=== PATIENT | male | born 1940 | race Caucasian/White ===

== ENCOUNTER 2018-06-09 03:35 | Outpatient (RCR) | payer OTHER, MEDICARE, SELFPAY ==
[2018-06-16 10:06] VITALS: BP 132/75; PULSE 70; RESP 18; TEMP 36.4
[2018-06-16] MEDS: Normal Saline Flush 10 ML SYR IVP (10:22)
[2018-06-16] MEDS: IMMUNE GLOBULIN 40 GM/400 ML BTL IVPB (10:22)
[2018-06-16 10:35] VITALS: BP 131/66; PULSE 67; RESP 18; TEMP 36.3
[2018-06-16 10:50] VITALS: BP 122/65; PULSE 67; RESP 18; TEMP 36.3
[2018-06-16 11:28] VITALS: BP 122/63; PULSE 66; RESP 18; TEMP 36.3
[2018-06-16 12:00] VITALS: BP 140/71; PULSE 74; RESP 18; TEMP 36.3
[2018-06-16 12:30] VITALS: BP 131/67; PULSE 69; RESP 18; TEMP 36.3
[2018-06-17 08:35] VITALS: BP 131/67; PULSE 69; RESP 18; TEMP 36.3
[2018-06-17] MEDS: Normal Saline Flush 10 ML SYR IVP (08:36)
[2018-06-17] MEDS: IMMUNE GLOBULIN 40 GM/400 ML BTL IVPB (08:48)
[2018-06-17 08:49] VITALS: BP 129/68; PULSE 63; RESP 18; TEMP 36.3
[2018-06-17 09:15] VITALS: BP 132/73; PULSE 67; RESP 18; TEMP 36.2
[2018-06-17 09:30] VITALS: BP 126/65; PULSE 67; RESP 18; TEMP 36.1
[2018-06-17 09:45] VITALS: BP 128/64; PULSE 69; RESP 18; TEMP 36.1
[2018-06-17 10:15] VITALS: BP 134/71; PULSE 67; RESP 18; TEMP 36.2
[2018-06-18 08:49] VITALS: BP 130/68; PULSE 67; RESP 18; TEMP 36.2
[2018-06-18] MEDS: IMMUNE GLOBULIN 40 GM/400 ML BTL IVPB (09:06)
[2018-06-18] MEDS: Normal Saline Flush 10 ML SYR IVP (09:06)
[2018-06-18 09:15] VITALS: BP 142/79; PULSE 67; RESP 17; TEMP 36.3
[2018-06-18 09:30] VITALS: BP 133/63; PULSE 67; RESP 18; TEMP 36.2
[2018-06-18 09:45] VITALS: BP 125/61; PULSE 67; RESP 17; TEMP 36.1
[2018-06-18 10:15] VITALS: BP 129/70; PULSE 65; RESP 18; TEMP 36.7
[2018-06-19 09:02] VITALS: BP 138/76; PULSE 61; RESP 17; TEMP 36.3
[2018-06-19] MEDS: IMMUNE GLOBULIN 40 GM/400 ML BTL IVPB (09:10)
[2018-06-19] MEDS: Normal Saline Flush 10 ML SYR IVP (09:10)
[2018-06-19 09:15] VITALS: BP 138/80; PULSE 67; RESP 18; TEMP 36.4
[2018-06-19 09:30] VITALS: BP 139/80; PULSE 63; RESP 18; TEMP 36.4
[2018-06-19 09:45] VITALS: BP 135/80; PULSE 65; RESP 18; TEMP 36.5
[2018-06-19 10:15] VITALS: BP 136/72; PULSE 61; RESP 18; TEMP 36.5
[2018-06-19 10:45] VITALS: BP 142/75; PULSE 58; RESP 18; TEMP 36.3
[2018-06-20 09:25] VITALS: BP 154/72; PULSE 65; RESP 18; TEMP 36.1
[2018-06-20] MEDS: IMMUNE GLOBULIN 40 GM/400 ML BTL IVPB (09:29)
[2018-06-20] MEDS: Normal Saline Flush 10 ML SYR IVP (09:29)
[2018-06-20 09:45] VITALS: BP 148/82; PULSE 65; RESP 18; TEMP 36.5
[2018-06-20 10:01] VITALS: BP 143/81; PULSE 59; RESP 18; TEMP 36.2
[2018-06-20 10:30] VITALS: BP 134/70; PULSE 61; RESP 18; TEMP 36.1
[2018-06-20 11:07] VITALS: BP 142/74; PULSE 58; RESP 18; TEMP 36.2
[2018-06-20 11:33] VITALS: BP 145/77; PULSE 46; TEMP 36.2
== END 2018-07-04 ==
LOC: INF 06-16 01:43
PROVIDERS: PCP Family Medicine; Visit Provider Family Medicine
DX: G61.81 Chronic inflammatory demyelinating polyneuritis (principal)
CPT/HCPCS: 96365 ×5; 96366 ×5; J1459 ×5

== ENCOUNTER 2018-07-14 00:47 | Outpatient (RCR) | payer MEDICARE, OTHER, SELFPAY | END 2018-08-03 23:59 | disposition home or self-care (01) | LOC: INF 00:47 | PROVIDERS: PCP Family Medicine; Visit Provider Family Medicine | DX: R69 Illness, unspecified (principal) ==

== ENCOUNTER 2018-10-03 00:43 | Outpatient (RCR) | payer OTHER, MEDICARE, SELFPAY ==
[2018-09-29 11:03] VITALS: BP 146/77; PULSE 76; RESP 18; TEMP 36.6; O2SAT 97
[2018-09-29] MEDS: Normal Saline Flush 10 ML SYR IVP (11:18)
[2018-09-29] MEDS: IMMUNE GLOBULIN 40 GM/400 ML BTL IVPB (11:18)
[2018-09-29 11:24] VITALS: BP 132/66; PULSE 78; RESP 18; TEMP 36.5; O2SAT 97
[2018-09-29 11:42] VITALS: BP 136/72; PULSE 74; RESP 18; TEMP 36.5; O2SAT 98
[2018-09-29 12:16] VITALS: BP 152/71; PULSE 75; RESP 18; TEMP 36.6; O2SAT 98
[2018-09-30] MEDS: IMMUNE GLOBULIN 40 GM/400 ML BTL IVPB (11:09)
[2018-09-30 11:15] VITALS: BP 145/75; PULSE 69; RESP 18; TEMP 36.5; O2SAT 98
[2018-09-30 11:30] VITALS: BP 152/77; PULSE 65; RESP 18; TEMP 36.6; O2SAT 98
[2018-09-30 12:00] VITALS: BP 160/82; PULSE 65; RESP 18; TEMP 36.5; O2SAT 98
[2018-09-30] MEDS: Normal Saline Flush 10 ML SYR IVP (14:33)
[2018-10-01 09:48] VITALS: BP 134/74; PULSE 71; RESP 18; TEMP 36.5; O2SAT 98
[2018-10-01] MEDS: IMMUNE GLOBULIN 40 GM/400 ML BTL IVPB (09:52)
[2018-10-01 10:11] VITALS: BP 154/77; PULSE 77; RESP 18; TEMP 36.4; O2SAT 98
[2018-10-01] MEDS: Normal Saline Flush 10 ML SYR IVP (10:18)
[2018-10-01 10:45] VITALS: BP 140/76; PULSE 71; RESP 18; TEMP 36.5; O2SAT 98
[2018-10-02 09:17] VITALS: BP 153/83; PULSE 69; RESP 18; TEMP 36.5; O2SAT 100
[2018-10-02] MEDS: IMMUNE GLOBULIN 40 GM/400 ML BTL IVPB (09:28)
[2018-10-02] MEDS: Normal Saline Flush 10 ML SYR IVP (09:28)
[2018-10-02 09:45] VITALS: BP 145/76; PULSE 68; RESP 18; TEMP 36.4; O2SAT 99
[2018-10-02 10:00] VITALS: BP 157/79; PULSE 60; RESP 18; TEMP 36.5; O2SAT 99
[2018-10-03 09:19] VITALS: BP 148/74; PULSE 65; RESP 18; TEMP 36.6; O2SAT 98
[2018-10-03] MEDS: IMMUNE GLOBULIN 40 GM/400 ML BTL IVPB (09:19)
[2018-10-03] MEDS: Normal Saline Flush 10 ML SYR IVP (09:19)
[2018-10-03 09:35] VITALS: BP 158/77; PULSE 68; RESP 18; TEMP 36.6; O2SAT 99
[2018-10-03 10:00] VITALS: BP 159/75; PULSE 64; RESP 18; TEMP 36.4; O2SAT 98
== END 2018-10-03 23:59 | disposition home or self-care (01) ==
LOC: INF 00:43
PROVIDERS: PCP Family Medicine; Visit Provider Internal Medicine
DX: G61.81 Chronic inflammatory demyelinating polyneuritis (principal)
CPT/HCPCS: 96365; 96366; J1459

== ENCOUNTER 2018-12-26 00:57 | Outpatient (RCR) | payer OTHER, MEDICARE, SELFPAY ==
[2018-12-22 09:25] VITALS: BP 143/69; PULSE 67; RESP 18; TEMP 36.5; O2SAT 98
[2018-12-22] MEDS: Normal Saline Flush 10 ML SYR IVP (10:00)
[2018-12-22] MEDS: Acetaminophen 325 MG TAB 650 MG PO (10:00)
[2018-12-22] MEDS: diphenhydrAMINE 25 MG CAP PO (10:00)
[2018-12-22] MEDS: IMMUNE GLOBULIN 40 GM/400 ML BTL IVPB (10:06)
[2018-12-22 10:10] VITALS: BP 147/72; PULSE 78; RESP 18; TEMP 36.5; O2SAT 98
[2018-12-22 10:25] VITALS: BP 141/64; PULSE 73; RESP 18; TEMP 36.5; O2SAT 98
[2018-12-22 10:40] VITALS: BP 128/54; PULSE 68; RESP 18; TEMP 36.5; O2SAT 97
[2018-12-22 11:25] VITALS: BP 142/65; PULSE 71; RESP 18; TEMP 36.5; O2SAT 99
[2018-12-23 09:42] VITALS: BP 144/67; PULSE 74; RESP 18; TEMP 36.6; O2SAT 99
[2018-12-23] MEDS: Acetaminophen 325 MG TAB 650 MG PO (09:42)
[2018-12-23] MEDS: diphenhydrAMINE 25 MG CAP PO (09:42)
[2018-12-23] MEDS: IMMUNE GLOBULIN 40 GM/400 ML BTL IVPB (09:52)
[2018-12-23 10:05] VITALS: BP 130/60; PULSE 70; RESP 18; TEMP 36.5; O2SAT 98
[2018-12-23 10:21] VITALS: BP 134/62; PULSE 70; RESP 18; TEMP 36.5; O2SAT 98
[2018-12-23 10:52] VITALS: BP 134/65; PULSE 68; RESP 18; TEMP 36.4; O2SAT 99
[2018-12-23 11:15] VITALS: BP 138/63; PULSE 69; RESP 18; TEMP 36.4; O2SAT 99
[2018-12-23] MEDS: Normal Saline Flush 10 ML SYR IVP (12:09)
[2018-12-24] MEDS: Acetaminophen 325 MG TAB 650 MG PO (09:28)
[2018-12-24] MEDS: diphenhydrAMINE 25 MG CAP PO (09:29)
[2018-12-24 09:33] VITALS: BP 149/75; PULSE 70; RESP 18; TEMP 36.1; O2SAT 98
[2018-12-24] MEDS: IMMUNE GLOBULIN 40 GM/400 ML BTL IVPB (09:34)
[2018-12-24] MEDS: Normal Saline Flush 10 ML SYR IVP (09:35)
[2018-12-24 10:00] VITALS: BP 146/70; PULSE 71; RESP 18; TEMP 37.5; O2SAT 97
[2018-12-24 10:15] VITALS: BP 145/65; PULSE 70; RESP 18; TEMP 36.8; O2SAT 98
[2018-12-24 11:06] VITALS: BP 144/72; PULSE 78; RESP 18; TEMP 36.2; O2SAT 98
[2018-12-25] MEDS: diphenhydrAMINE 25 MG CAP PO (09:40)
[2018-12-25] MEDS: Acetaminophen 325 MG TAB 650 MG PO (09:40)
[2018-12-25] MEDS: IMMUNE GLOBULIN 40 GM/400 ML BTL IVPB (09:42)
[2018-12-25 09:43] VITALS: BP 153/73; PULSE 70; RESP 18; TEMP 36.5; O2SAT 98
[2018-12-25] MEDS: Normal Saline Flush 10 ML SYR IVP (10:00)
[2018-12-25 10:05] VITALS: BP 137/72; PULSE 70; RESP 18; TEMP 36.5; O2SAT 98
[2018-12-25 10:20] VITALS: BP 158/68; PULSE 72; RESP 18; TEMP 36; O2SAT 99
[2018-12-25 10:35] VITALS: BP 142/65; PULSE 78; RESP 18; TEMP 36.5; O2SAT 98
[2018-12-25 11:10] VITALS: BP 150/74; PULSE 71; RESP 18; TEMP 36.3; O2SAT 98
[2018-12-26] MEDS: Acetaminophen 325 MG TAB 650 MG PO (09:05)
[2018-12-26] MEDS: diphenhydrAMINE 25 MG CAP PO (09:05)
[2018-12-26 09:19] VITALS: BP 151/75; PULSE 65; RESP 18; TEMP 36.4; O2SAT 99
[2018-12-26] MEDS: Normal Saline Flush 10 ML SYR IVP (09:29)
[2018-12-26] MEDS: IMMUNE GLOBULIN 40 GM/400 ML BTL IVPB (09:29)
[2018-12-26 09:46] VITALS: BP 132/80; PULSE 69; RESP 18; TEMP 36.5; O2SAT 100
[2018-12-26 10:00] VITALS: BP 145/74; PULSE 65; RESP 18; TEMP 36.6; O2SAT 98
[2018-12-26 10:40] VITALS: BP 144/70; PULSE 68; RESP 18; TEMP 36.5; O2SAT 98
== END 2019-01-01 23:59 | disposition home or self-care (01) ==
LOC: INF 00:57
PROVIDERS: PCP Family Medicine; Visit Provider Internal Medicine
DX: G61.81 Chronic inflammatory demyelinating polyneuritis (principal)
CPT/HCPCS: 96365; 96366; J1459

== ENCOUNTER 2019-03-27 00:49 | Outpatient (RCR) | payer OTHER, MEDICARE, SELFPAY ==
[2019-03-23] MEDS: IMMUNE GLOBULIN 40 GM/400 ML BTL IVPB (09:48)
[2019-03-23] MEDS: Normal Saline Flush 10 ML SYR IVP (09:49)
[2019-03-23 09:54] VITALS: BP 126/68; PULSE 59; RESP 18; TEMP 36.4; O2SAT 98
[2019-03-23 10:18] VITALS: BP 136/75; PULSE 63; RESP 18; TEMP 36.5; O2SAT 97
[2019-03-23 10:53] VITALS: BP 125/70; PULSE 66; TEMP 36.2
[2019-03-23 11:45] VITALS: BP 127/70; PULSE 56; RESP 18; TEMP 36.3; O2SAT 97
[2019-03-24 09:29] VITALS: BP 132/74; PULSE 54; RESP 18; TEMP 36.4; O2SAT 99
[2019-03-24] MEDS: IMMUNE GLOBULIN 40 GM/400 ML BTL IVPB (09:31)
[2019-03-24] MEDS: Normal Saline Flush 10 ML SYR IVP (09:31)
[2019-03-24 09:58] VITALS: BP 136/80; PULSE 56; TEMP 36.5; O2SAT 100
[2019-03-24 10:39] VITALS: BP 131/70; PULSE 53; TEMP 36.3; O2SAT 99
[2019-03-25] MEDS: Normal Saline Flush 10 ML SYR IVP (10:16)
[2019-03-25] MEDS: IMMUNE GLOBULIN 40 GM/400 ML BTL IVPB (10:16)
[2019-03-25 10:17] VITALS: BP 157/82; PULSE 57; RESP 18; TEMP 36.2; O2SAT 98
[2019-03-25 10:33] VITALS: BP 152/62; PULSE 61; RESP 18; TEMP 36.4; O2SAT 99
[2019-03-25 10:53] VITALS: BP 154/71; PULSE 60; RESP 18; TEMP 36.5; O2SAT 98
[2019-03-25 11:25] VITALS: BP 136/69; PULSE 62; RESP 18; TEMP 36.4; O2SAT 99
[2019-03-26 10:13] VITALS: BP 133/83; PULSE 55; RESP 18; TEMP 36.4; O2SAT 98
[2019-03-26] MEDS: IMMUNE GLOBULIN 40 GM/400 ML BTL IVPB (10:13)
[2019-03-26] MEDS: Normal Saline Flush 10 ML SYR IVP (10:14)
[2019-03-26 10:35] VITALS: BP 134/68; PULSE 57; RESP 16; TEMP 36.2; O2SAT 96
[2019-03-26 11:00] VITALS: BP 139/71; PULSE 54; RESP 18; TEMP 36.5; O2SAT 98
[2019-03-26 11:43] VITALS: BP 135/61; PULSE 60; RESP 18; TEMP 36.5; O2SAT 96
[2019-03-26 12:11] VITALS: BP 151/78; PULSE 54; RESP 18; TEMP 36.1; O2SAT 99
[2019-03-27 09:30] VITALS: BP 128/82; PULSE 51; RESP 18; TEMP 36.4; O2SAT 100
[2019-03-27] MEDS: IMMUNE GLOBULIN 40 GM/400 ML BTL IVPB (09:38)
[2019-03-27] MEDS: Normal Saline Flush 10 ML SYR IVP (09:38)
[2019-03-27 10:00] VITALS: BP 135/76; PULSE 59; RESP 18; TEMP 36.3; O2SAT 98
[2019-03-27 10:14] VITALS: BP 120/57; PULSE 57; TEMP 36.1; O2SAT 100
[2019-03-27 10:47] VITALS: BP 132/67; PULSE 60; TEMP 36.3; O2SAT 97
[2019-03-27 11:30] VITALS: BP 136/74; PULSE 56; RESP 18; TEMP 36; O2SAT 98
== END 2019-04-03 23:59 | disposition home or self-care (01) ==
LOC: INF 00:49
PROVIDERS: PCP Family Medicine; Visit Provider Family Medicine
DX: G61.81 Chronic inflammatory demyelinating polyneuritis (principal)
CPT/HCPCS: 96365; 96366; J1459

== ENCOUNTER 2019-07-17 02:40 | Outpatient (RCR) | payer OTHER, SELFPAY ==
[2019-07-13 09:46] VITALS: BP 146/86; PULSE 57; RESP 18; TEMP 36.5; O2SAT 100
[2019-07-13] MEDS: Normal Saline Flush 10 ML SYR IVP (09:50)
[2019-07-13] MEDS: IMMUNE GLOBULIN 40 GM/400 ML BTL IVPB (09:59)
[2019-07-13 10:02] VITALS: BP 146/76; PULSE 61; RESP 18; TEMP 36.6; O2SAT 98
[2019-07-13 10:20] VITALS: BP 130/74; PULSE 55; RESP 18; TEMP 36.6; O2SAT 100
[2019-07-13 10:45] VITALS: BP 129/72; PULSE 61; RESP 18; TEMP 36.5; O2SAT 100
[2019-07-13 11:28] VITALS: BP 134/77; PULSE 53; RESP 18; TEMP 36.3; O2SAT 100
[2019-07-14] MEDS: IMMUNE GLOBULIN 40 GM/400 ML BTL IVPB (09:09)
[2019-07-14 09:10] VITALS: BP 130/70; PULSE 54; RESP 16; TEMP 36.4; O2SAT 100
[2019-07-14] MEDS: Normal Saline Flush 10 ML SYR IVP (09:10)
[2019-07-14 09:30] VITALS: BP 128/79; PULSE 52; RESP 18; TEMP 36.5; O2SAT 99
[2019-07-14 10:08] VITALS: BP 118/63; PULSE 53; RESP 18; TEMP 36.6; O2SAT 98
[2019-07-14 10:51] VITALS: BP 136/66; PULSE 61; RESP 18; TEMP 36.5; O2SAT 100
[2019-07-14 11:23] VITALS: BP 133/52; PULSE 52; RESP 18; TEMP 36.2; O2SAT 100
[2019-07-15 09:15] VITALS: BP 151/75; PULSE 47; RESP 18; TEMP 36.5; O2SAT 100
[2019-07-15] MEDS: IMMUNE GLOBULIN 40 GM/400 ML BTL IVPB (09:22)
[2019-07-15] MEDS: Normal Saline Flush 10 ML SYR IVP (09:22)
[2019-07-15 09:29] VITALS: BP 136/73; PULSE 49; RESP 18; TEMP 36.2; O2SAT 100
[2019-07-15 09:50] VITALS: BP 157/68; PULSE 55; RESP 18; TEMP 36.3; O2SAT 98
[2019-07-16 09:31] VITALS: BP 158/78; PULSE 55; RESP 18; TEMP 36.3; O2SAT 98
[2019-07-16 09:35] VITALS: BP 158/78; PULSE 55; RESP 18; TEMP 36.3; O2SAT 98
[2019-07-16] MEDS: IMMUNE GLOBULIN 40 GM/400 ML BTL IVPB (09:37)
[2019-07-16] MEDS: Normal Saline Flush 10 ML SYR IVP (09:37)
[2019-07-16 09:45] VITALS: BP 136/79; PULSE 61; RESP 18; TEMP 36.5; O2SAT 99
[2019-07-16 10:02] VITALS: BP 135/78; PULSE 64; RESP 18; TEMP 36.5; O2SAT 98
[2019-07-16 10:21] VITALS: BP 137/76; PULSE 55; RESP 18; TEMP 36.6; O2SAT 99
[2019-07-17] MEDS: IMMUNE GLOBULIN 40 GM/400 ML BTL IVPB (09:20)
[2019-07-17] MEDS: Normal Saline Flush 10 ML SYR IVP (09:21)
[2019-07-17 09:22] VITALS: BP 147/76; PULSE 60; RESP 18; TEMP 36.6; O2SAT 100
[2019-07-17 09:40] VITALS: BP 145/77; PULSE 57; RESP 18; TEMP 36.7; O2SAT 100
[2019-07-17 09:57] VITALS: BP 145/75; PULSE 55; RESP 18; TEMP 36.5; O2SAT 99
[2019-07-17 10:35] VITALS: BP 147/80; PULSE 50; RESP 18; TEMP 36.6; O2SAT 98
[2019-07-17 11:06] VITALS: BP 145/75; PULSE 52; RESP 18; TEMP 36.5; O2SAT 98
== END 2019-08-03 23:59 | disposition home or self-care (01) ==
LOC: INF 02:40
PROVIDERS: PCP Family Medicine; Visit Provider Internal Medicine
DX: G61.81 Chronic inflammatory demyelinating polyneuritis (principal)
CPT/HCPCS: 96365; 96366; J1459

== ENCOUNTER 2019-11-20 02:29 | Outpatient (RCR) | payer OTHER, SELFPAY ==
[2019-11-16 09:53] VITALS: BP 146/79; PULSE 68; RESP 16; TEMP 35.2; O2SAT 94
[2019-11-16] MEDS: IMMUNE GLOBULIN 40 GM/400 ML BTL IVPB (09:54)
[2019-11-16] MEDS: Normal Saline Flush 10 ML SYR IVP (09:54)
[2019-11-16 10:08] VITALS: BP 140/77; PULSE 61; RESP 19; TEMP 35.2; O2SAT 96
[2019-11-16 10:23] VITALS: BP 136/81; PULSE 55; RESP 18; TEMP 35.5; O2SAT 99
[2019-11-16 10:53] VITALS: BP 131/75; PULSE 54; RESP 19; TEMP 35.5; O2SAT 54
[2019-11-16 11:23] VITALS: BP 132/78; PULSE 56; RESP 19; TEMP 35.5; O2SAT 99
[2019-11-16 11:53] VITALS: BP 136/67; PULSE 53; RESP 18; TEMP 35.3; O2SAT 99
[2019-11-17] VITALS (7 sets, daily range): BP systolic 122–154; BP diastolic 67–86; PULSE 59–74; RESP 18–19; TEMP 35.4–36.1; O2SAT 97–100
[2019-11-17] MEDS: IMMUNE GLOBULIN 40 GM/400 ML BTL IVPB (09:30)
[2019-11-17] MEDS: Normal Saline Flush 10 ML SYR IVP (09:31)
[2019-11-18] VITALS (7 sets, daily range): BP systolic 130–145; BP diastolic 79–89; PULSE 55–82; RESP 18–19; TEMP 35.3–36.2; O2SAT 96–100
[2019-11-18] MEDS: IMMUNE GLOBULIN 40 GM/400 ML BTL IVPB (09:31)
[2019-11-18] MEDS: Normal Saline Flush 10 ML SYR IVP (09:31)
[2019-11-19 09:38] VITALS: BP 153/84; PULSE 64; RESP 18; TEMP 35.8; O2SAT 100
[2019-11-19 09:44] VITALS: BP 149/73; PULSE 68; RESP 18; TEMP 35.8; O2SAT 100
[2019-11-19] MEDS: IMMUNE GLOBULIN 40 GM/400 ML BTL IVPB (09:45)
[2019-11-19] MEDS: Normal Saline Flush 10 ML SYR IVP (09:45)
[2019-11-19 09:59] VITALS: BP 153/89; PULSE 63; RESP 18; TEMP 35.5; O2SAT 98
[2019-11-19 10:14] VITALS: BP 145/86; PULSE 64; RESP 19; TEMP 35.8; O2SAT 99
[2019-11-19 10:44] VITALS: BP 137/72; PULSE 65; RESP 18; TEMP 35.5; O2SAT 98
[2019-11-19 11:14] VITALS: BP 135/74; PULSE 60; RESP 19; TEMP 35.5; O2SAT 99
[2019-11-20 10:00] VITALS: BP 148/84; PULSE 60; RESP 19; TEMP 36.2; O2SAT 100
[2019-11-20 10:09] VITALS: BP 132/84; PULSE 58; RESP 19; TEMP 36; O2SAT 99
[2019-11-20] MEDS: IMMUNE GLOBULIN 40 GM/400 ML BTL IVPB (10:13)
[2019-11-20] MEDS: Normal Saline Flush 10 ML SYR IVP (10:14)
[2019-11-20 10:24] VITALS: BP 133/80; PULSE 60; RESP 18; TEMP 36; O2SAT 97
[2019-11-20 10:55] VITALS: BP 131/77; PULSE 63; RESP 19; TEMP 36; O2SAT 98
[2019-11-20 11:25] VITALS: BP 137/82; PULSE 69; RESP 18; TEMP 35.8; O2SAT 99
[2019-11-20 11:55] VITALS: BP 162/85; PULSE 64; RESP 19; TEMP 36.5; O2SAT 100
== END 2019-12-04 23:59 | disposition home or self-care (01) ==
LOC: INF 02:29
PROVIDERS: PCP Family Medicine; Visit Provider Family Medicine
DX: G61.81 Chronic inflammatory demyelinating polyneuritis (principal)
CPT/HCPCS: 96365; 96366; J1459

== ENCOUNTER 2020-05-13 03:43 | Outpatient (RCR) | payer OTHER, SELFPAY ==
[2020-05-09] MEDS: IMMUNE GLOBULIN 40 GM/400 ML BTL IVPB (09:39)
[2020-05-09] MEDS: diphenhydrAMINE 25 MG CAP PO (09:41)
[2020-05-09] MEDS: Acetaminophen 325 MG TAB 650 MG PO (09:41)
[2020-05-09 09:50] VITALS: BP 138/75; PULSE 60; RESP 16; TEMP 37.3; O2SAT 100
[2020-05-09 10:09] VITALS: BP 159/70; PULSE 63; RESP 16; TEMP 36.6; O2SAT 99
[2020-05-09 10:24] VITALS: BP 133/77; PULSE 58; RESP 20; TEMP 35.7; O2SAT 99
[2020-05-09 10:53] VITALS: BP 134/73; PULSE 59; RESP 20; TEMP 35.7; O2SAT 99
[2020-05-09 11:35] VITALS: BP 136/71; PULSE 58; RESP 20; TEMP 36.1; O2SAT 100
[2020-05-10 09:08] VITALS: BP 147/75; PULSE 64; RESP 18; TEMP 36.1; O2SAT 100
[2020-05-10 09:15] VITALS: BP 126/78; PULSE 62; RESP 18; TEMP 36.1; O2SAT 99
[2020-05-10] MEDS: IMMUNE GLOBULIN 40 GM/400 ML BTL IVPB (09:16)
[2020-05-10] MEDS: Normal Saline Flush 10 ML SYR IVP (09:17)
[2020-05-10 09:30] VITALS: BP 128/74; PULSE 57; RESP 18; TEMP 36; O2SAT 99
[2020-05-10 10:00] VITALS: BP 134/72; PULSE 69; RESP 19; TEMP 36; O2SAT 99
[2020-05-10 10:30] VITALS: BP 133/72; PULSE 66; RESP 18; TEMP 36; O2SAT 96
[2020-05-10 11:00] VITALS: BP 128/69; PULSE 60; RESP 18; TEMP 36.1; O2SAT 98
[2020-05-11 09:28] VITALS: BP 145/73; PULSE 60; RESP 18; TEMP 36.5; O2SAT 100
[2020-05-11] MEDS: IMMUNE GLOBULIN 40 GM/400 ML BTL IVPB (09:33)
[2020-05-11] MEDS: Normal Saline Flush 10 ML SYR IVP (09:36)
[2020-05-11 09:47] VITALS: BP 165/89; PULSE 68; RESP 18; TEMP 36.6; O2SAT 100
[2020-05-11 10:05] VITALS: BP 138/73; PULSE 63; RESP 19; TEMP 36.6; O2SAT 99
[2020-05-11 10:20] VITALS: BP 132/66; PULSE 57; RESP 18; TEMP 36.2; O2SAT 99
[2020-05-11 10:50] VITALS: BP 137/77; PULSE 57; RESP 18; TEMP 36.2; O2SAT 98
[2020-05-11 11:05] VITALS: BP 136/62; PULSE 52; RESP 19; TEMP 36.2; O2SAT 98
[2020-05-12] MEDS: IMMUNE GLOBULIN 40 GM/400 ML BTL IVPB (09:13)
[2020-05-12 09:14] VITALS: BP 155/75; PULSE 63; RESP 18; TEMP 36.6; O2SAT 99
[2020-05-12 09:20] VITALS: BP 153/74; PULSE 58; RESP 18; TEMP 36.6; O2SAT 100
[2020-05-12] MEDS: Normal Saline Flush 10 ML SYR IVP (09:22)
[2020-05-12 09:35] VITALS: BP 153/74; PULSE 60; RESP 18; TEMP 36.4; O2SAT 100
[2020-05-12 10:05] VITALS: BP 133/75; PULSE 63; RESP 19; TEMP 36.2; O2SAT 100
[2020-05-12 10:35] VITALS: BP 148/69; PULSE 67; RESP 18; TEMP 36.1; O2SAT 100
[2020-05-12 11:05] VITALS: BP 148/73; PULSE 67; RESP 19; TEMP 36.2; O2SAT 99
[2020-05-13 09:22] VITALS: BP 151/81; PULSE 56; RESP 19; TEMP 36.6; O2SAT 99
[2020-05-13 09:24] VITALS: BP 149/70; PULSE 60; RESP 18; TEMP 36.6; O2SAT 99
[2020-05-13] MEDS: IMMUNE GLOBULIN 40 GM/400 ML BTL IVPB (09:25)
[2020-05-13 09:39] VITALS: BP 143/75; PULSE 54; RESP 18; TEMP 36.7; O2SAT 99
[2020-05-13 09:54] VITALS: BP 145/75; PULSE 60; RESP 18; TEMP 36.6; O2SAT 99
[2020-05-13 10:24] VITALS: BP 137/74; PULSE 55; RESP 18; TEMP 36.5; O2SAT 100
[2020-05-13 10:54] VITALS: BP 152/66; PULSE 66; RESP 18; TEMP 36.5; O2SAT 99
== END 2020-06-03 23:59 | disposition home or self-care (01) ==
LOC: INF 03:43
PROVIDERS: PCP Family Medicine; Visit Provider Internal Medicine
DX: G32.89 Other specified degenerative disorders of nervous system in diseases classified elsewhere (principal); Z45.2 Encounter for adjustment and management of vascular access device
CPT/HCPCS: 36410; 96365; 96366; J1459

== ENCOUNTER 2020-08-26 05:51 | Outpatient (RCR) | payer OTHER, SELFPAY ==
[2020-08-22 10:25] VITALS: BP 156/68; PULSE 64; RESP 19; TEMP 36.6; O2SAT 99
[2020-08-22] MEDS: IMMUNE GLOBULIN 40 GM/400 ML BTL IVPB (10:28)
[2020-08-22 10:34] VITALS: BP 143/73; PULSE 62; RESP 19; TEMP 36; O2SAT 99
[2020-08-22] MEDS: Normal Saline Flush 10 ML SYR IVP (10:35)
[2020-08-22 10:49] VITALS: BP 134/72; PULSE 59; RESP 18; TEMP 36.2; O2SAT 98
[2020-08-22 11:19] VITALS: BP 128/67; PULSE 62; RESP 19; TEMP 36.2; O2SAT 97
[2020-08-22 11:49] VITALS: BP 153/64; PULSE 51; RESP 20; TEMP 36.2; O2SAT 100
[2020-08-22 12:19] VITALS: BP 153/72; PULSE 60; RESP 18; TEMP 36; O2SAT 100
[2020-08-23 09:00] VITALS: BP 149/73; PULSE 65; RESP 16; TEMP 36.6; O2SAT 100
[2020-08-23 09:15] VITALS: BP 142/93; PULSE 62; RESP 16; TEMP 36.6; O2SAT 100
[2020-08-23] MEDS: Normal Saline Flush 10 ML SYR IVP (09:18)
[2020-08-23] MEDS: IMMUNE GLOBULIN 40 GM/400 ML BTL IVPB (09:18)
[2020-08-23 09:30] VITALS: BP 129/71; PULSE 62; RESP 17; TEMP 36; O2SAT 100
[2020-08-23 10:00] VITALS: BP 120/69; PULSE 71; RESP 17; TEMP 36; O2SAT 100
[2020-08-23 10:30] VITALS: BP 123/65; PULSE 66; RESP 18; TEMP 36.2; O2SAT 100
[2020-08-23 11:00] VITALS: BP 144/72; PULSE 57; RESP 17; TEMP 36.2; O2SAT 100
[2020-08-24 09:00] VITALS: BP 136/71; PULSE 62; RESP 14; TEMP 36.6; O2SAT 98
[2020-08-24] MEDS: IMMUNE GLOBULIN 40 GM/400 ML BTL IVPB (09:20)
[2020-08-24] MEDS: Normal Saline Flush 10 ML SYR IVP (09:21)
[2020-08-24 09:25] VITALS: BP 126/75; PULSE 62; RESP 16; TEMP 36.6; O2SAT 98
[2020-08-24 09:40] VITALS: BP 124/70; PULSE 67; RESP 18; TEMP 36.6; O2SAT 98
[2020-08-24 10:10] VITALS: BP 139/70; PULSE 68; RESP 18; TEMP 36.6; O2SAT 99
[2020-08-25 09:37] VITALS: BP 135/66; PULSE 51; RESP 17; TEMP 36.5; O2SAT 98
[2020-08-25] MEDS: IMMUNE GLOBULIN 40 GM/400 ML BTL IVPB (09:40)
[2020-08-25] MEDS: Normal Saline Flush 10 ML SYR IVP (09:43)
[2020-08-25 09:52] VITALS: BP 137/64; PULSE 59; RESP 16; TEMP 36.4; O2SAT 100
[2020-08-25 10:07] VITALS: BP 138/69; PULSE 50; RESP 16; TEMP 36.5; O2SAT 100
[2020-08-25 11:09] VITALS: BP 144/71; PULSE 52; RESP 16; TEMP 36.5; O2SAT 100
[2020-08-25 11:37] VITALS: BP 154/75; PULSE 55; RESP 16; TEMP 36.4; O2SAT 100
[2020-08-26] MEDS: Normal Saline Flush 10 ML SYR IVP (09:17)
[2020-08-26 09:19] VITALS: BP 129/66; PULSE 62; RESP 19; TEMP 36.7; O2SAT 98
[2020-08-26 09:23] VITALS: BP 136/70; PULSE 60; RESP 18; TEMP 36.7; O2SAT 98
[2020-08-26] MEDS: IMMUNE GLOBULIN 40 GM/400 ML BTL IVPB (09:25)
[2020-08-26] MEDS: Bacitracin 1 PACKET (09:26)
[2020-08-26 09:38] VITALS: BP 145/78; PULSE 65; RESP 17; TEMP 36.7; O2SAT 98
[2020-08-26 10:08] VITALS: BP 145/73; PULSE 67; RESP 18; TEMP 36.8; O2SAT 98
[2020-08-26 10:38] VITALS: BP 144/73; PULSE 54; RESP 18; TEMP 36.6; O2SAT 97
== END 2020-09-03 23:59 | disposition home or self-care (01) ==
LOC: INF 05:51
PROVIDERS: PCP Family Medicine; Visit Provider Family Medicine
DX: G32.89 Other specified degenerative disorders of nervous system in diseases classified elsewhere (principal); Z45.2 Encounter for adjustment and management of vascular access device
CPT/HCPCS: 36410; 96365; 96366; J1459

== ENCOUNTER 2021-02-17 04:54 | Outpatient (RCR) | payer OTHER, SELFPAY ==
[2021-02-13 10:05] VITALS: BP 133/68; PULSE 60; RESP 16; TEMP 36.6; O2SAT 97
[2021-02-13] MEDS: IMMUNE GLOBULIN 40 GM/400 ML BTL IVPB (10:06)
[2021-02-13 10:15] VITALS: BP 133/68; PULSE 65; RESP 12; TEMP 36.6; O2SAT 97
[2021-02-13] MEDS: Normal Saline Flush 10 ML SYR IVP (10:16)
[2021-02-13 10:30] VITALS: BP 138/72; PULSE 65; RESP 16; TEMP 36.6; O2SAT 97
[2021-02-13 11:00] VITALS: BP 113/65; PULSE 71; RESP 16; TEMP 36.3; O2SAT 96
[2021-02-13 11:30] VITALS: BP 139/70; PULSE 68; RESP 16; TEMP 36.5; O2SAT 98
[2021-02-13 12:01] VITALS: BP 150/71; PULSE 66; RESP 16; TEMP 36.1; O2SAT 99
[2021-02-14 09:32] VITALS: BP 134/78; PULSE 54; RESP 16; TEMP 36.4; O2SAT 98
[2021-02-14] MEDS: IMMUNE GLOBULIN 40 GM/400 ML BTL IVPB (09:32)
[2021-02-14] MEDS: Normal Saline Flush 10 ML SYR IVP (09:40)
[2021-02-14 09:47] VITALS: BP 154/81; PULSE 64; RESP 16; TEMP 36.5; O2SAT 99
[2021-02-14 10:05] VITALS: BP 130/66; PULSE 60; RESP 18; TEMP 36.2; O2SAT 99
[2021-02-14 10:32] VITALS: BP 126/62; PULSE 61; RESP 16; TEMP 36.3; O2SAT 99
[2021-02-14 11:05] VITALS: BP 136/70; PULSE 61; RESP 16; TEMP 36.3; O2SAT 98
[2021-02-15] MEDS: IMMUNE GLOBULIN 40 GM/400 ML BTL IVPB (09:22)
[2021-02-15 09:23] VITALS: BP 134/70; PULSE 64; RESP 16; TEMP 36.6; O2SAT 98
[2021-02-15] MEDS: Normal Saline Flush 10 ML SYR IVP (09:23)
[2021-02-15 09:38] VITALS: BP 135/69; PULSE 55; RESP 16; TEMP 36.6; O2SAT 99
[2021-02-15 10:09] VITALS: BP 125/62; PULSE 63; RESP 16; TEMP 36.2; O2SAT 98
[2021-02-15 10:38] VITALS: BP 130/67; PULSE 61; RESP 16; TEMP 36.2; O2SAT 98
[2021-02-15 11:10] VITALS: BP 124/92; PULSE 83; RESP 16; TEMP 37; O2SAT 98
[2021-02-16] VITALS (7 sets, daily range): BP systolic 137–167; BP diastolic 65–75; PULSE 66–86; RESP 14–16; TEMP 36.2–37.6; O2SAT 95–99
[2021-02-16] MEDS: Normal Saline Flush 10 ML SYR IVP (09:20)
[2021-02-16] MEDS: IMMUNE GLOBULIN 40 GM/400 ML BTL IVPB (09:20)
[2021-02-17] MEDS: IMMUNE GLOBULIN 40 GM/400 ML BTL IVPB (09:25)
[2021-02-17] MEDS: Normal Saline Flush 10 ML SYR IVP (09:25)
[2021-02-17 09:35] VITALS: BP 169/71; PULSE 64; RESP 16; TEMP 37.1; O2SAT 100
[2021-02-17 09:50] VITALS: BP 143/68; PULSE 58; RESP 16; TEMP 37.3; O2SAT 98
[2021-02-17 10:20] VITALS: BP 149/69; PULSE 62; RESP 16; TEMP 36.9; O2SAT 99
[2021-02-17 10:50] VITALS: BP 134/62; PULSE 63; RESP 16; TEMP 37; O2SAT 96
[2021-02-17 11:30] VITALS: BP 159/76; PULSE 64; RESP 16; TEMP 37.2; O2SAT 99
== END 2021-03-03 23:59 | disposition home or self-care (01) ==
LOC: INF 04:54
PROVIDERS: PCP Family Medicine; Visit Provider Family Medicine
DX: G61.81 Chronic inflammatory demyelinating polyneuritis (principal); Z45.2 Encounter for adjustment and management of vascular access device
CPT/HCPCS: 36410; 96365; 96366; J1459

== ENCOUNTER 2021-06-23 12:00 | Outpatient (RCR) | payer OTHER, MEDICARE, SELFPAY ==
[2021-06-19] MEDS: IMMUNE GLOBULIN 40 GM/400 ML BTL IVPB (10:05)
[2021-06-19] MEDS: Normal Saline Flush 10 ML SYR IVP (10:06)
[2021-06-19 10:15] VITALS: BP 136/78; PULSE 56; RESP 16; TEMP 36.5; O2SAT 100
[2021-06-19 10:30] VITALS: BP 133/72; PULSE 54; RESP 16; TEMP 36.5; O2SAT 100
[2021-06-19 11:00] VITALS: BP 136/72; PULSE 54; RESP 16; TEMP 36.7; O2SAT 100
[2021-06-19 11:30] VITALS: BP 133/74; PULSE 47; RESP 16; TEMP 36.7; O2SAT 100
[2021-06-20] MEDS: IMMUNE GLOBULIN 40 GM/400 ML BTL IVPB (09:22)
[2021-06-20 09:25] VITALS: BP 153/73; PULSE 57; RESP 19; TEMP 36.2; O2SAT 100
[2021-06-20] MEDS: Normal Saline Flush 10 ML SYR IVP (09:27)
[2021-06-20 09:44] VITALS: BP 136/74; PULSE 55; RESP 17; TEMP 36.5; O2SAT 100
[2021-06-20 10:00] VITALS: BP 152/73; PULSE 57; RESP 16; TEMP 36.8; O2SAT 100
[2021-06-20 10:31] VITALS: BP 135/70; PULSE 57; RESP 16; O2SAT 100
[2021-06-20 11:00] VITALS: BP 134/67; PULSE 54; RESP 17; TEMP 36.6; O2SAT 100
[2021-06-21] MEDS: IMMUNE GLOBULIN 40 GM/400 ML BTL IVPB (09:41)
[2021-06-21] MEDS: Normal Saline Flush 10 ML SYR IVP (09:47)
[2021-06-21 09:48] VITALS: BP 148/68; PULSE 60; RESP 17; TEMP 36.7; O2SAT 99
[2021-06-21 10:05] VITALS: BP 132/70; PULSE 57; RESP 16; TEMP 36.4; O2SAT 98
[2021-06-21 10:20] VITALS: BP 132/72; PULSE 56; RESP 17; TEMP 36.5; O2SAT 100
[2021-06-21 10:50] VITALS: BP 129/70; PULSE 62; RESP 17; TEMP 36.3; O2SAT 100
[2021-06-21 11:25] VITALS: BP 129/70; PULSE 59; RESP 17; TEMP 36.6; O2SAT 100
[2021-06-22 09:48] VITALS: BP 155/71; PULSE 66; RESP 19; TEMP 36.6; O2SAT 99
[2021-06-22] MEDS: IMMUNE GLOBULIN 40 GM/400 ML BTL IVPB (09:56)
[2021-06-22] MEDS: Normal Saline Flush 10 ML SYR IVP (09:56)
[2021-06-22 10:10] VITALS: BP 138/74; PULSE 71; RESP 17; TEMP 36.8; O2SAT 100
[2021-06-22 10:25] VITALS: BP 144/66; PULSE 58; RESP 16; TEMP 37; O2SAT 99
[2021-06-22 10:55] VITALS: BP 144/67; PULSE 64; RESP 16; TEMP 37; O2SAT 98
[2021-06-22 11:30] VITALS: BP 135/64; PULSE 62; RESP 17; TEMP 36.8; O2SAT 99
[2021-06-23 09:40] VITALS: BP 151/74; PULSE 60; RESP 20; TEMP 36.8; O2SAT 100
[2021-06-23] MEDS: IMMUNE GLOBULIN 40 GM/400 ML BTL IVPB (09:44)
[2021-06-23] MEDS: Normal Saline Flush 10 ML SYR IVP (09:45)
[2021-06-23 10:03] VITALS: BP 158/77; PULSE 67; RESP 20; TEMP 37; O2SAT 99
[2021-06-23 10:37] VITALS: BP 150/72; PULSE 61; RESP 17; TEMP 36.6; O2SAT 98
[2021-06-23 11:05] VITALS: BP 136/78; PULSE 61; RESP 17; TEMP 37; O2SAT 136
== END 2021-07-04 23:59 | disposition home or self-care (01) ==
LOC: INF 12:00
PROVIDERS: PCP Family Medicine; Visit Provider Internal Medicine
DX: G61.81 Chronic inflammatory demyelinating polyneuritis (principal); Z45.2 Encounter for adjustment and management of vascular access device
CPT/HCPCS: 36410; 96365; 96366; J1459

== ENCOUNTER 2022-02-01 02:59 | Outpatient (RCR) | payer OTHER, SELFPAY ==
[2022-01-29] MEDS: Normal Saline Flush 10 ML SYR IVP (10:01)
[2022-01-29] MEDS: IMMUNE GLOBULIN 5 GM/50 ML BTL IVPB (10:01)
[2022-01-29 10:10] VITALS: BP 139/65; PULSE 66; RESP 12; TEMP 36.1; O2SAT 100
[2022-01-29 10:25] VITALS: BP 130/67; PULSE 69; RESP 12; TEMP 36.6; O2SAT 100
[2022-01-29] MEDS: IMMUNE GLOBULIN 10 GM/100 ML BTL IVPB (10:33)
[2022-01-29 10:55] VITALS: BP 130/59; PULSE 61; RESP 16; TEMP 36.2; O2SAT 100
[2022-01-29] MEDS: IMMUNE GLOBULIN 20 GM/200 ML BTL IVPB (11:24)
[2022-01-29 11:25] VITALS: BP 142/60; PULSE 63; RESP 16; TEMP 36.4; O2SAT 100
[2022-01-30 09:40] VITALS: BP 144/74; PULSE 56; RESP 18; TEMP 35.8; O2SAT 100
[2022-01-30] MEDS: IMMUNE GLOBULIN 5 GM/50 ML BTL IVPB (09:43)
[2022-01-30] MEDS: Normal Saline Flush 10 ML SYR IVP (09:43)
[2022-01-30 10:00] VITALS: BP 135/75; PULSE 62; RESP 16; TEMP 36.3; O2SAT 100
[2022-01-30] MEDS: IMMUNE GLOBULIN 10 GM/100 ML BTL IVPB (10:05)
[2022-01-30 10:15] VITALS: BP 148/67; PULSE 57; RESP 16; TEMP 36.6; O2SAT 100
[2022-01-30 10:45] VITALS: BP 149/75; PULSE 57; RESP 16; TEMP 36.5; O2SAT 100
[2022-01-30] MEDS: IMMUNE GLOBULIN 20 GM/200 ML BTL IVPB (10:55)
[2022-01-30 11:20] VITALS: BP 137/85; PULSE 57; RESP 16; TEMP 36.4; O2SAT 100
[2022-01-31 09:25] VITALS: BP 139/74; PULSE 66; RESP 17; TEMP 36.5; O2SAT 100
[2022-01-31] MEDS: Normal Saline Flush 10 ML SYR IVP (09:34)
[2022-01-31] MEDS: IMMUNE GLOBULIN 10 GM/100 ML BTL IVPB (09:34)
[2022-01-31 09:50] VITALS: BP 128/72; PULSE 63; RESP 17; TEMP 35.9; O2SAT 99
[2022-01-31 10:05] VITALS: BP 121/69; PULSE 68; RESP 17; TEMP 36.5; O2SAT 100
[2022-01-31] MEDS: IMMUNE GLOBULIN 20 GM/200 ML BTL IVPB (10:28)
[2022-01-31 10:35] VITALS: BP 123/71; PULSE 58; RESP 17; TEMP 36.6; O2SAT 100
[2022-01-31 11:05] VITALS: BP 135/74; PULSE 54; RESP 17; TEMP 36.5; O2SAT 100
[2022-02-01 09:50] VITALS: BP 143/66; PULSE 63; RESP 17; TEMP 36.8; O2SAT 100
[2022-02-01] MEDS: IMMUNE GLOBULIN 10 GM/100 ML BTL IVPB (09:51)
[2022-02-01] MEDS: Normal Saline Flush 10 ML SYR IVP (09:52)
[2022-02-01 10:15] VITALS: BP 147/72; PULSE 70; RESP 17; TEMP 36.7; O2SAT 100
[2022-02-01 10:30] VITALS: BP 147/74; PULSE 63; RESP 18; TEMP 36.8; O2SAT 100
[2022-02-01] MEDS: IMMUNE GLOBULIN 20 GM/200 ML BTL IVPB (10:52)
[2022-02-01 11:00] VITALS: BP 147/65; PULSE 69; RESP 17; TEMP 37.2; O2SAT 100
[2022-02-01 11:30] VITALS: BP 153/70; PULSE 65; RESP 17; TEMP 36.6; O2SAT 100
== END 2022-02-01 23:59 | disposition home or self-care (01) ==
LOC: INF 02:59
PROVIDERS: PCP Family Medicine; Visit Provider Internal Medicine
DX: G61.81 Chronic inflammatory demyelinating polyneuritis (principal)
CPT/HCPCS: 36410; 96365; 96366; J1459

== ENCOUNTER 2022-02-02 01:03 | Outpatient (RCR) | payer OTHER, SELFPAY ==
[2022-02-02 00:18] VITALS: BP 153/70; PULSE 65; RESP 17; TEMP 36.6
[2022-02-02 09:10] VITALS: BP 155/69; PULSE 65; RESP 17; TEMP 36.7; O2SAT 100
[2022-02-02] MEDS: IMMUNE GLOBULIN 10 GM/100 ML BTL IVPB (09:15)
[2022-02-02] MEDS: Normal Saline Flush 10 ML SYR IVP (09:16)
[2022-02-02 09:25] VITALS: BP 146/77; PULSE 64; RESP 18; TEMP 36.7; O2SAT 98
[2022-02-02 09:40] VITALS: BP 134/68; PULSE 62; RESP 18; TEMP 36.7; O2SAT 100
[2022-02-02] MEDS: IMMUNE GLOBULIN 20 GM/200 ML BTL IVPB (10:05)
[2022-02-02 10:10] VITALS: BP 133/69; PULSE 63; RESP 18; TEMP 36.8; O2SAT 100
[2022-02-02 10:40] VITALS: BP 143/72; PULSE 68; RESP 18; TEMP 36.7; O2SAT 99
== END 2022-03-03 23:59 | disposition home or self-care (01) ==
LOC: INF 01:03
PROVIDERS: PCP Family Medicine; Visit Provider Internal Medicine
DX: G61.81 Chronic inflammatory demyelinating polyneuritis (principal)
CPT/HCPCS: 96365; 96366; J1459